=== PATIENT | male | born 1955 | race Caucasian/White ===

== ENCOUNTER → 2019-09-24 | Outpatient (CLI) | payer BC, OTHER ==
[~2019-09-24] VITALS: Ht 170.2 cm; Wt 122.5 kg
[~2019-09-24] MED LIST: REGADENOSON 0.4 MG/5 ML PF SYG IVP SCH
== END | disposition home or self-care (01) ==
LOC: SHCH 07:52
PROVIDERS: ATTEND Internal Medicine Cardiovascular Disease
DX: I25.10 Atherosclerotic heart disease of native coronary artery without angina pectoris (principal)
CPT/HCPCS: 78452; 93017; 96374; A9500 ×2; J2785

== ENCOUNTER 2019-10-22 07:16 | Day surgery (SDC) | payer BC, OTHER ==
[2019-10-20 10:10] VITALS: BP 116/69
[2019-10-20 10:34] LABS: BASOPHILS % (AUTO) 0.5 % (0.0-5.0); EOSINOPHILS % (AUTO) 0.9 % (0.0-8.0); HEMATOCRIT 42.8 % (42-54); LYMPHOCYTES % (AUTO) 28.7 % (21.0-51.0); MEAN CORPUSCULAR HEMOGLOBIN 32.6 pg (27.0-33.0); MEAN CORPUSCULAR HGB CONC 34.2 g/dL (32.0-36.0); MEAN CORPUSCULAR VOLUME 95.2 fL (79-99); MONOCYTES % (AUTO) 9.8 % (3.0-13.0); NEUTROPHILS % (AUTO) 60.1 % (40.0-77.0); NUCLEATED RED BLOOD CELLS 0.1 % (0.0-0.19); PLATELET COUNT (AUTO) 191 K/uL (130-400); RED BLOOD CELL COUNT(AUTO) 4.49 MIL/uL (4.50-6.20); RED CELL DISTRIBUTION WIDTH 14.6 % (11.0-15.5); WHITE BLOOD COUNT (AUTO) 6.2 K/uL (4.8-10.8)
[2019-10-20 10:48] LABS: APPEARANCE,URINE Clear (CLEAR); BILIRUBIN,URINE Negative (NEGATIVE); COLOR,URINE Yellow (YELLOW); GLUCOSE, URINE (UA) Negative (NEGATIVE); KETONES,URINE Negative (NEGATIVE); LEUKOCYTE ESTERASE ,URINE Negative (NEGATIVE); NITRATE,URINE Negative (NEGATIVE); OCCULT BLOOD,URINE Negative (NEGATIVE); PROTEIN,URINE Negative (NEGATIVE); UROBILINOGEN,URINE 0.2 mg/dL (0.2-1.0)
[2019-10-20 10:49] LABS: CREATININE 1.2 mg/dL (0.5-1.5); POTASSIUM 4.7 mmol/L (3.5-5.1)
[2019-10-20 10:57] LABS: INR 1.01 (0.85-1.15); PARTIAL THROMBOPLASTIN TIME 26.8 SEC (26.3-35.5); PROTHROMBIN TIME 10.6 SEC (9.6-11.6)
[~2019-10-22] VITALS: Ht 170.2 cm; Wt 117.7 kg
[2019-10-22] VITALS (8 sets, daily range): BP systolic 105–123; BP diastolic 49–64
[~2019-10-22 07:16] MED LIST changes: +ASPI-1005 PO; +ATOR20TA65 PO; +CETI10TA57 PO; +DOCU100C33 PO; +EZET10TA48 PO; +FLUT15.845 NS; +LEVO125T11 PO; +LORA10TA7 PO; +LOSA100T58 PO; +METF-444 PO; +METO200T49 PO; +OMEG-148 PO; +RANO10004 PO; -REGADENOSON 0.4 MG/5 ML PF SYG IVP SCH; +SODIUM CHLORIDE 0.9% 1000ML 1,000 ML IV SCH
--- NOTE | 2019-10-22 07:35 | NUR ---
PRE-PROCEDURE RECEIVED TO DAY 15 VIA AMBULATING FOR SCHEDULED LHC. AWAKE IN NO ACUTE DISTRESS. DENIES CHEST PAIN. CONNECTED TO CONTINUOUS CARDIOPULMONARY MONITORING. SIDE RAILS UP X2, BED IN LOWEST POSITION, AND CALL LIGHT W/IN REACH.
[2019-10-22] MEDS ORDERED: [UNRECOGNIZED DRUG - CODE] PO (08:50)
[2019-10-22] MEDS ORDERED: HEPARIN SODIUM 1000UNIT/ML 10ML VIAL ONE (09:40)
[2019-10-22] MEDS ORDERED: NITROGLYCERIN 5 MG/ML 10 ML VIAL IV ONE (09:40)
[2019-10-22] MEDS ORDERED: BIVALIRUDIN 250 MG/VIAL IV ONE (09:40)
[2019-10-22] MEDS ORDERED: IOHEXOL 350 MG/ML 100ML INFUS..BTL IV ONE (09:41)
[2019-10-22] MEDS ORDERED: IOHEXOL-350 50ML VIAL IV ONE ×2 (09:41→14:49)
[2019-10-22] MEDS ORDERED: LIDOCAINE HCL 2% 20ML ONE (09:41)
--- NOTE | 2019-10-22 11:47 | NUR ---
REPORT REPORT GIVEN TO VIVEK SCHNEIDER USING SBAR. VERBALIZED UNDERSTANDING.
[2019-10-22] MEDS ORDERED: MIDAZOLAM HCL 1 MG/ML 2ML VIAL ONE (14:26)
[2019-10-22] MEDS ORDERED: SODIUM CHLORIDE 0.9% 1000ML 1,000 ML IV SCH (15:11)
[2019-10-22] MEDS ORDERED: GLUCAGON 1MG KIT 1 MG ML IM PRN (15:15)
[2019-10-22] MEDS ORDERED: DEXTROSE 50%-WATER 50 ML DISP.SYRIN IV PRN (15:15)
--- NOTE | 2019-10-22 15:40 | NUR ---
PATIENT RETURNED PATIENT BROUGHT BACK FROM SENIOR ACCOUNTING CLERK VIA BED BY VIVEK MOSES. PATIENT AAOX3, RESPIRATIONS UNLABORED, VITAL SIGNS STABLE, DENIES ANY PAIN AT THIS TIME. DRESSING TO RIGHT GROID N DRY/INTACT. NO DRAINAGE/BLEEDING OR HEMATOMA NOTED, AREA SOFT UPON PALPATION. PATIENT'S SPOUSE AT BEDSIDE.
--- NOTE | 2019-10-22 16:10 | NUR ---
REPORT/HANDOFF REPORT GIVEN AT BEDSIDE TO BRANDO TIERNEY RN USING SBAR, ALL QUESTIONS ANSWERED. PATIENT WAITING TO BE TAKEN TO STUDIO DESIGNER FOR PROCEDURE. SIDERAILS UP X2, BED IN LOWEST POSITION, CALL CARTER IN REACH. Addendum: 10/22/19 at 1632 by JENNIE GOLDEN RN RN WRONG PATIENT/ DISREGARD Addendum: 10/22/19 at 1857 by BRANDO TIERNEY RN RN PT. LEFT VIA WHEELCHAIR IN PVT WITH , D/C INSTRUCTION GIVEN TO . NO COMPLICATION UPON D/C . DRESSING IS DRY AND INTACT, NO BLEEDING NO HEMATOMA, DP BILATERAL PRESENT.
--- NOTE | 2019-10-22 16:10 | NUR ---
REPORT/HANDOFF HANDOFF REPORT GIVEN AT BEDSIDE TO BRANDO TIERNEY RN USING SBAR, ALL QUESTIONS ANSWERED. DRESSING DRY/INTACT, AREA SOFT AND PULSES STRONG/PALPABLE.
[2019-10-22] MEDS ORDERED: INSULIN HUMULIN R 100 UNIT/ML 3ML SQ SCH (16:30)
== END 2019-10-22 19:00 | disposition home or self-care (01) ==
LOC: DAH 07:16
PROVIDERS: ATTEND Internal Medicine Cardiovascular Disease
DX: I25.118 Atherosclerotic heart disease of native coronary artery with other forms of angina pectoris (principal); E11.9 Type 2 diabetes mellitus without complications; I10 Essential (primary) hypertension; G47.30 Sleep apnea, unspecified; E66.9 Obesity, unspecified; E03.9 Hypothyroidism, unspecified; E78.2 Mixed hyperlipidemia; Z88.5 Allergy status to narcotic agent; Z88.1 Allergy status to other antibiotic agents; Z79.82 Long term (current) use of aspirin; Z79.899 Other long term (current) drug therapy; Z82.49 Family history of ischemic heart disease and other diseases of the circulatory system; Z83.3 Family history of diabetes mellitus; Z79.84 Long term (current) use of oral hypoglycemic drugs; Z68.41 Body mass index [BMI] 40.0-44.9, adult; Z79.01 Long term (current) use of anticoagulants
CPT/HCPCS: 36415; 71045; 80048; 81003; 82948 ×2; 85025; 85610; 85730; 93005; 93458; A4215; A4216; A4221; A4222; A4223 ×3; A4606; A4663; C1760; C1894; J1644; J2250; J3490 ×2; J7030; Q9965; Q9967 ×3; 99156; 99157; J0583